=== PATIENT | male | born 1995 | race Caucasian/White ===

== ENCOUNTER 2024-04-26 02:20 | Emergency (ER) | payer OTHER, SELFPAY ==
[2024-04-26 02:23] VITALS: BP 124/80
[2024-04-26 02:27] VITALS: BMI 27.1
[2024-04-26 02:38] VITALS: BP 113/98
--- NOTE | 2024-04-26 02:44 | ED.GENMED ---
History of Present Illness
<Louise Posadas MD - Last Filed: 04/26/24 02:50>
General
Chief Complaint: Chest Pain
Source: patient and family
Time Seen by Provider: 04/26/24 02:35
History of Present Illness
History of Present Illness:
This patient is a 28-year-old male who is a self-described 'hypochondriac', who presents emergency department with 'sharp' discomfort in the left anterior chest that started around 3:30 PM after eating a late lunch. Since then, the pain is now
improved and described as a 'achiness', and will come and go without specific exacerbating relieving factors. At this moment he is pain-free. He denies associated mid upper back pain, neck pain, jaw pain, headache, dizziness, diaphoresis, nausea,
vomiting, dyspnea, abdominal pain, leg swelling, recent immobilization, recent trauma, or other symptoms. Patient states he has been seen in the emergency department at least 3 times for this in the past and been reassured with his workup. He
describes a family history of coronary disease however does not believe it was before the age of 50. Pain is not pleuritic in nature, pain does not radiate
Past History
<Louise Posadas MD - Last Filed: 04/26/24 02:50>
Past History
ED Past Medical History: Hypercholesterolemia
ED Past Surgical History: None
Social History
Tobacco: Former smoker
Alcohol: None
Drug: None
Personal:
Living: with family
Family History
Family History: CAD
Phy Exam
<Louise Posadas MD - Last Filed: 04/26/24 02:50>
Physical Exam
Physical Exam:
GENERAL: Alert , in no apparent distress
EYE: pupils equal and reactive
NECK: Supple, no significant adenopathy.
ENT: o/p clr, mmm.
CARDIAC: Regular rate and rhythm, no murmurs noted.
LUNGS: Clear breath sounds bilaterally, no acute respiratory distress, no wheezes/rales/rhonchi
ABDOMEN: Soft, without focal tenderness, no r/g, no cvat
NEUROLOGICAL: Alert and oriented, no focal neuro deficits
SKIN: Warm and dry, skin intact.
MUSCULOSKELETAL: No edema, well perfused.
PSYCH: Normal and appropriate interaction.
Scores
<Maricruz Clark DO - Last Filed: 04/28/24 01:59>
Heart Score for Chest Pain Patients
STEMI patient?: No
History: Slightly or Non-Suspicious
ECG: Normal
Age: </= 45 years
Risk Factors: No Risk Factors
Troponin: </= Normal Limit
Heart Score for Chest Pain Patients: 0
Heart Score Risk: 2.5% MACE over next 6 weeks
Course
<Louise Posadas MD - Last Filed: 04/26/24 02:50>
Orders/Labs/Results
Orders:
Orders
04/26/24 02:25
ECG [Electrocardiogram (*1)] Urgent
Reason for Study: Chest Pain
04/26/24 02:26
EKG- Treatment ONCE
04/26/24 02:47
Cardiac Monitoring- Treatment ONCE
04/26/24 03:03
Complete Blood Count/No Diff Urgent
Comprehensive Metabolic Panel Urgent
Troponin I Urgent
Abnormal Lab Results
04/26/24
03:03
RBC 4.50 L 10^6/uL
(4.70-6.10)
Hgb 12.5 L g/dL
(13.0-18.0)
Hct 36.4 L %
(39.0-52.0)
MPV 10.5 H fL
(7.4-10.4)
04/26/24 03:03
04/26/24 03:03
Vital Signs
Initial and Last Documented VS:
Initial Vital Signs
Temp Pulse Resp BP Pulse Ox
98.6 F 90 24 124/80 96
04/26/24 02:23 04/26/24 02:23 04/26/24 02:23 04/26/24 02:23 04/26/24 02:23
Last Documented Vital Signs
Temp Pulse Resp BP Pulse Ox
98.6 F 86 21 104/71 98
04/26/24 02:23 04/26/24 04:30 04/26/24 04:30 04/26/24 04:00 04/26/24 02:45
Yudelkalt;Maricruz Clark, DO - Last Filed: 04/28/24 01:59>
Orders/Labs/Results
Orders:
Orders
04/26/24 02:25
ECG [Electrocardiogram (*1)] Urgent
Reason for Study: Chest Pain
04/26/24 02:26
EKG- Treatment ONCE
04/26/24 02:47
Cardiac Monitoring- Treatment ONCE
04/26/24 03:03
Complete Blood Count/No Diff Urgent
Comprehensive Metabolic Panel Urgent
Troponin I Urgent
Abnormal Lab Results
04/26/24
03:03
RBC 4.50 L 10^6/uL
(4.70-6.10)
Hgb 12.5 L g/dL
(13.0-18.0)
Hct 36.4 L %
(39.0-52.0)
MPV 10.5 H fL
(7.4-10.4)
04/26/24 03:03
04/26/24 03:03
Vital Signs
Initial and Last Documented VS:
Initial Vital Signs
Temp Pulse Resp BP Pulse Ox
98.6 F 90 24 124/80 96
04/26/24 02:23 04/26/24 02:23 04/26/24 02:23 04/26/24 02:23 04/26/24 02:23
Last Documented Vital Signs
Temp Pulse Resp BP Pulse Ox
98.6 F 86 21 104/71 98
04/26/24 02:23 04/26/24 04:30 04/26/24 04:30 04/26/24 04:00 04/26/24 02:45
<Maricruz Clark DO - Last Filed: 04/28/24 01:59>
*Pulse Oximetry
Patient hypoxic: no
*EKG
Interpreted by ED Provider?: Yes
Interpretation: normal
Comparison EKG: no comparison EKG present
Rate: normal
Rhythm: sinus
[place]: normal axis
Interval: normal interval
QRS Pattern: normal QRS
Ischemia: no ischemia
*Medical Biller Coder Interpretation
Rate: normal
Interpretation: normal
Rhythm: sinus
*Critical Care Note
Total Time (30-74mins, 75-104mins- exclusive of procedures): Not Applicable
<Louise Posadas MD - Last Filed: 04/26/24 02:50>
Update Note
Update Note:
Patient presents to the Emergency Department with
Number and Complexity of Problems Addressed at the Encounter
� Chronic conditions affecting care:
� Acute Exacerbation and/or Progression of Chronic Illness:
� Differential Diagnosis includes:
Amount and/or Complexity of Data to be Reviewed and Analyzed
� I performed an independent evaluation of and my interpretation is:
EKG: Read by me, normal sinus rhythm, normal rate, normal axis
CT:
Xrays:
Laboratory Studies:
Other:
� Review of other/old records reveals: No prior records noted here
� Clinical information was obtained by an independent historian:
� Prescriptions/Medications Considered but not given:
� Further testing considered but not performed:
Risk of Complications and/or Morbidity or Mortality of Patient Management
� Social determinants of health affecting care:
� Discussion with other providers (PCP, Hospitalists, Consultants, etc):
� Escalation of care including admission/observation vs risk of discharge considered:Workup pending...low clinical suspicion for acs given age, atypical sxs, reassuring ecg, etc. Doublt dissection (not sudden, not radiating, not
marfanoid, etc etc), doubt pe (no rf, not pleuritic,etc), doubt pericarditis (Ecg and hx does not suggest), etc. S/o to Dr Clark...check labs, reassess, likely d/c.
<Maricruz Clark, DO - Last Filed: 04/28/24 01:59>
Update Note
Update Note:
Patient presents to the Emergency Department with
Number and Complexity of Problems Addressed at the Encounter
� Chronic conditions affecting care:
� Acute Exacerbation and/or Progression of Chronic Illness:
� Differential Diagnosis includes:
Amount and/or Complexity of Data to be Reviewed and Analyzed
� I performed an independent evaluation of and my interpretation is:
EKG: Read by me, normal sinus rhythm, normal rate, normal axis
CT:
Xrays:
Laboratory Studies:
Other:
� Review of other/old records reveals: No prior records noted here
� Clinical information was obtained by an independent historian:
� Prescriptions/Medications Considered but not given:
� Further testing considered but not performed:
Risk of Complications and/or Morbidity or Mortality of Patient Management
� Social determinants of health affecting care:
� Discussion with other providers (PCP, Hospitalists, Consultants, etc):
� Escalation of care including admission/observation vs risk of discharge considered:Workup pending...low clinical suspicion for acs given age, atypical sxs, reassuring ecg, etc. Doublt dissection (not sudden, not radiating, not
marfanoid, etc etc), doubt pe (no rf, not pleuritic,etc), doubt pericarditis (Ecg and hx does not suggest), etc. S/o to Dr Clark...check labs, reassess, likely d/c.
04/26/2024 0407 AM
Patient reexamined, resting comfortably, pain-free.
Labs are all unremarkable save for mild anemia with hemoglobin of 12.5. Chemistries are normal including normal troponin. With ongoing chest discomfort since 4 PM yesterday, unremarkable EKG and normal troponin, ACS is unlikely.
I suspect an element of GERD.
He does admit to occasional similar episodes of left-sided chest discomfort if he eats spicy foods.
No risk factors for thromboembolism nor history of such.
Recommend bland diet, avoiding spicy or fried foods, avoid caffeinated beverages, alcoholic beverages. Continue omeprazole as needed for discomfort and prompt follow-up with PCP.
ED Attending Note
<Louise Posadas MD - Last Filed: 04/26/24 02:50>
-
Portions of this chart may have been created with voice recognition software.� Occasional wrong word or��sound alike� substitutions may have occurred due to the inherent limitations of voice recognition software.
Discharge Plan
Departure
Patient Disposition: Home (Routine Discharge)
Date of Disposition: 04/26/24
Time of Disposition: 04:08
Patient with high blood pressure during this ER visit?: Yes
Condition: Good
Discharge Problem:
Chest pain
Instructions: Chest Pain PCP Follow Up, BLOOD PRESSURE
Prescriptions:
No Action
No Current Medications
0
Activity Restrictions/Additional Instructions:
PLEASE SEE YOUR FAMILY DOCTOR IN CLOSE FOLLOW UP. IF YOU DEVELOP INCREASING/NEW/PERSISTENT PAIN, ANY TROUBLE BREATHING, DIZZINESS, ABDOMINAL PAIN, NAUSEA/VOMITING, OR OTHER WORRISOME SIGNS, GO TO THE ER IMMEDIATELY!
Interventions
Interventions:
*Risk Screen - Suicide Last Done: 04/26/24 02:23
*General Assessment Last Done: 04/26/24 02:27
*Neglect/Abuse Screening Last Done: 04/26/24 02:23
ED- Fall Risk Assessment Last Done: 04/26/24 02:27
*ED COVID-19 Vaccine History Last Done: 04/26/24 02:27
*Nursing Disposition Last Done: 04/26/24 04:45
ED- Cardiac Assessment Last Done: 04/26/24 02:27
Discharge Date and Time
Discharge Date/Time: 04/26/24 04:45
Print Language: CITIZEN OF [place]
[2024-04-26 03:00] VITALS: BP 104/76
[2024-04-26 03:12] LABS: Hematocrit 36.4 % (39.0-52.0); Hemoglobin 12.5 g/dL (13.0-18.0); Mean Corp Hgb Conc. 34.3 g/dL (33.0-37.0); Mean Corpuscular Hgb 27.8 pg (27.0-31.0); Mean Corpuscular Volume 80.9 fL (80.0-94.0); Mean Platelet Volume 10.5 fL (7.4-10.4); Platelet Count 212 10^3/uL (130-400); Red Cell Dist. Width 13.2 % (11.5-14.5); White Blood Cell Count 8.6 10^3/uL (4.8-10.8)
[2024-04-26 03:34] LABS: ALT (SGPT) 47 U/L (0-50); AST (SGOT) 35 U/L (17-59); Albumin 4.9 g/dl (3.5-5.0); Alkaline Phosphatase 61 U/L (38-126); Blood Urea Nitrogen 11 mg/dl (9-20); Calcium 9.5 mg/dl (8.4-10.2); Carbon Dioxide 25 mmol/L (22-30); Chloride 103 mmol/L (98-107); Estimated Creatinine Clearance 111 ml/min; Glucose 88 mg/dl (70-99); Potassium 3.9 mmol/L (3.5-5.1); Sodium 141 mmol/L (135-145); Total Protein 7.7 g/dl (6.3-8.2); eGFR > 60.00
[2024-04-26 03:47] LABS: Troponin I < 0.012 ng/ml
[2024-04-26 04:00] VITALS: BP 104/71
== END 2024-04-26 04:45 | disposition home or self-care (01) ==
LOC: EMR 02:20
PROVIDERS: Emergency Medicine; EMERGENCY PHYSICIAN Emergency Medicine
DX: R07.89 Other chest pain (principal)
CPT/HCPCS: 99283; 80053; 84484; 85027; 93005

== ENCOUNTER 2024-07-18 19:11 | Emergency (ER) | payer OTHER, SELFPAY ==
[2024-07-18] VITALS (16 sets, daily range): BP systolic 113–125; BP diastolic 79–89; BMI 23.1
--- NOTE | 2024-07-18 19:29 | ED.GENMED ---
ED Provider Triage
<Honey Jean PA-C - Last Filed: 07/18/24 19:34>
-
Patient seen by provider in Triage?: Seen in Triage
Attestation: A medical screening examination has been initiated by a qualified medical provider. Based on the assessment performed at this time, it has been determined that an emergent medical condition may exist and the patient has been informed
that further medical evaluation and possible additional diagnostic testing may be needed.
HPI: 28yoM here with palpitations x several days. HR went up to the 200s last night. Also having intermittent sharp chest pains. Seen by bag liner yesterday and has a stress test scheduled on Tuesday.
GENERAL: Alert , in no apparent distress
EYE: No visual abnormalities.
NECK: Trachea midline
ENT: No visible abnormalities.
LUNGS: No acute respiratory distress
NEUROLOGICAL: Alert and oriented
SKIN: Skin intact. No visible changes.
MUSCULOSKELETAL: Moving extremities normally
PSYCH: Normal and appropriate interaction.
This is a medical evaluation conducted in person to initiate diagnostic evaluation and provide initial therapeutics. Please see further documentation by the treating clinician.
Cardiac labs, TSH, magnesium, EKG, and CXR ordered.
History of Present Illness
<Honey Jean PA-C - Last Filed: 07/18/24 19:34>
General
Chief Complaint: Chest Problem
Time Seen by Provider: 07/18/24 20:42
<Janeth Pardo DO - Last Filed: 07/18/24 22:41>
History of Present Illness
History of Present Illness:
28-year-old male without significant past medical history presenting to the emergency department for palpitations. Patient reports that he has had palpitations in the past, however in the last 4 days, has had increasing palpitations, and checked
his heart rate, which was greater than 170. Patient notes that at onset he went to outside hospital, was evaluated and heart rate had improved, was told to follow-up with cardiology. He saw cardiology, is scheduled for stress testing and Holter
monitor. Denies any supplement use. Denies any history of blood clots. Denies recent travel or surgery. Denies any supplement usage. Denies dyspnea. Denies any increased anxiety. Denies additional acute medical complaint
Past History
<Honey Jean PA-C - Last Filed: 07/18/24 19:34>
Past History
ED Past Medical History: Hypercholesterolemia
ED Past Surgical History: None
Social History
Tobacco: Former smoker
Alcohol: None
Drug: None
Personal:
Living: with family
Family History
Family History: CAD
Phy Exam
<Janeth Pardo DO - Last Filed: 07/18/24 22:41>
Physical Exam
Physical Exam:
General: Well-appearing, no clinical signs of dehydration, nontoxic and in no acute distress
HEENT: protecting airway
Neck: appears supple
CV: Normal heart rate, regular rhythm, no evidence of cyanosis
Resp: No accessory muscle use, no increased work of breathing, lungs clear to auscultation bilaterally
Abd: Soft and non-distended, no tenderness to palpation
Extremities: No deformities, no swelling, no erythema
Neuro: alert, no focal neurologic deficit
: deferred
Rectal: deferred
Psych: Normal affect
Skin: Intact
Course
<Honey Jean PA-C - Last Filed: 07/18/24 19:34>
Orders/Labs/Results
Orders:
Orders
07/18/24 19:12
Electrocardiogram (*1) Urgent
Reason for Study: Chest Pain
EKG- Treatment ONCE
07/18/24 19:32
CR Chest - 2 Views Urgent
Comment:
Reason For Exam: CP
07/18/24 19:40
Complete Blood Count/With Diff Urgent
Comprehensive Metabolic Panel Urgent
Free T4 Urgent
Magnesium Urgent
TSH Reflex To Free T4 Urgent
Troponin I Urgent
07/18/24 21:21
D-Dimer Urgent
Abnormal Lab Results
07/18/24
19:40
MPV 11.1 H fL
(7.4-10.4)
Glucose 146 H mg/dl
(70-99)
Total Protein 8.5 H g/dl
(6.3-8.2)
Albumin 5.4 H g/dl
(3.5-5.0)
TSH (Reflex) 0.42 L uIU/ml
(0.47-4.68)
07/18/24 19:40
07/18/24 19:40
Vital Signs
Initial and Last Documented VS:
Initial Vital Signs
Temp Pulse Resp BP Pulse Ox
98.2 F 94 16 125/86 99
07/18/24 19:25 07/18/24 19:25 07/18/24 19:25 07/18/24 19:25 07/18/24 19:25
Last Documented Vital Signs
Temp Pulse Resp BP Pulse Ox
98.2 F 86 13 118/86 98
07/18/24 19:25 07/18/24 22:00 07/18/24 22:00 07/18/24 22:00 07/18/24 20:40
<Janeth Pardo, DO - Last Filed: 07/18/24 22:41>
Orders/Labs/Results
Orders:
Orders
07/18/24 19:12
Electrocardiogram (*1) Urgent
Reason for Study: Chest Pain
EKG- Treatment ONCE
07/18/24 19:32
CR Chest - 2 Views Urgent
Comment:
Reason For Exam: CP
07/18/24 19:40
Complete Blood Count/With Diff Urgent
Comprehensive Metabolic Panel Urgent
Free T4 Urgent
Magnesium Urgent
TSH Reflex To Free T4 Urgent
Troponin I Urgent
07/18/24 21:21
D-Dimer Urgent
Abnormal Lab Results
07/18/24
19:40
MPV 11.1 H fL
(7.4-10.4)
Glucose 146 H mg/dl
(70-99)
Total Protein 8.5 H g/dl
(6.3-8.2)
Albumin 5.4 H g/dl
(3.5-5.0)
TSH (Reflex) 0.42 L uIU/ml
(0.47-4.68)
07/18/24 19:40
07/18/24 19:40
Vital Signs
Initial and Last Documented VS:
Initial Vital Signs
Temp Pulse Resp BP Pulse Ox
98.2 F 94 16 125/86 99
07/18/24 19:25 07/18/24 19:25 07/18/24 19:25 07/18/24 19:25 07/18/24 19:25
Last Documented Vital Signs
Temp Pulse Resp BP Pulse Ox
98.2 F 86 13 118/86 98
07/18/24 19:25 07/18/24 22:00 07/18/24 22:00 07/18/24 22:00 07/18/24 20:40
<Janeth Pardo, DO - Last Filed: 07/18/24 22:41>
MDM/Problems Addressed
MDM/Problems Addressed:
28-year-old male without any significant past medical history presenting for intermittent palpitations. Vital signs on arrival are normal.
On exam patient is resting comfortably, no acute distress or discomfort, normal heart rate. EKG reviewed, no arrhythmia, normal rhythm, normal rate. Exam is unremarkable, normal cardiac, pulmonary exam. Patient without any present chest pain,
nonischemic EKG without concern for ACS. Thyroid issue is a consideration, plan for thyroid testing. Emotional versus anxiety component is also consideration. PE is a consideration will plan for dimer.
22:30 -patient's labs are unremarkable, low TSH, however normal T4. Do not suspect thyroid issue. D-dimer within normal limits, without concern for PE. Troponin within normal limits, again without concern for ACS. Normal electrolyte panel and no
clinical signs of dehydration. Feel stable for discharge. 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 This reason feel stable for discharge. Return precautions discussed
and patient verbalized understanding
<Janeth Pardo DO - Last Filed: 07/18/24 22:41>
*EKG
Interpreted by ED Provider?: Yes
EKG Intrepretation Date: 07/18/24
EKG Intrepretation Time: 22:37
Interpretation: normal
Heart Rate: 80
Rate: normal
Rhythm: sinus
[place]: normal axis
Interval: normal interval
QRS Pattern: normal QRS
Ischemia: no ischemia
*Critical Care Note
Total Time (30-74mins, 75-104mins- exclusive of procedures): Not Applicable
ED Attending Note
<Honey Jean PA-C - Last Filed: 07/18/24 19:34>
-
Portions of this chart may have been created with voice recognition software.� Occasional wrong word or��sound alike� substitutions may have occurred due to the inherent limitations of voice recognition software.
Discharge Plan
Departure
Patient Disposition: Home (Routine Discharge)
Date of Disposition: 07/18/24
Time of Disposition: 22:33
Patient with high blood pressure during this ER visit?: No
Condition: Good
Discharge Problem:
Heart palpitations
Instructions: Palpitations ED
Prescriptions:
No Action
No Current Medications
0
Referrals:
Sahara Johnson DO [Primary Care Provider] -
EDGAR ODOM MD [Family Provider] -
Activity Restrictions/Additional Instructions:
You were seen in the emergency department for palpitations
You were found to have a normal EKG and laboratory analysis. Please follow-up with your bag liner as scheduled for Holter monitor and stress testing
Please follow-up closely with your primary care physician.
Return to the emergency department for any worsening of your symptoms, or any development of chest pain, difficulty breathing, abdominal pain with persistent vomiting and inability to tolerate food or liquid by mouth (concern for dehydration),
weakness, headache or confusion, fever greater than 100.4, or any additional symptoms that are concerning to you.
Thank you for choosing [facility].
Interventions
Interventions:
*Risk Screen - Suicide Last Done: 07/18/24 19:25
*General Assessment Last Done: 07/18/24 20:40
*Neglect/Abuse Screening Last Done: 07/18/24 19:25
ED- Fall Risk Assessment Last Done: 07/18/24 20:40
*ED COVID-19 Vaccine History Last Done: 07/18/24 20:39
ED- Cardiac Assessment Last Done: 07/18/24 20:40
ED- Pulmonary Assessment Last Done: 07/18/24 20:40
Discharge Date and Time
Print Language: MAORI
[2024-07-18 19:59] LABS: % Basophils 0.2 % (0-2); % Eosinophils 1.1 % (0-6); % Immature Granulocytes 0.2 % (0-0.5); % Lymphocytes 20.8 % (20.5-51.1); % Monocytes 4.4 % (1.7-9.3); % Neutrophils 73.3 % (42.2-75.2); Absolute Eosinophils 0.1 10^3/uL (0-0.7); Absolute Lymphocytes 1.7 10^3/uL (1.2-3.4); Absolute Monocytes 0.4 10^3/uL (0.1-0.6); Hematocrit 41.7 % (39.0-52.0); Hemoglobin 14.4 g/dL (13.0-18.0); Mean Corp Hgb Conc. 34.5 g/dL (33.0-37.0); Mean Corpuscular Hgb 28.4 pg (27.0-31.0); Mean Corpuscular Volume 82.2 fL (80.0-94.0); Mean Platelet Volume 11.1 fL (7.4-10.4); Nucleated Red Blood Cells % 0 % (-); Platelet Count 224 10^3/uL (130-400); Red Blood Cell Count 5.07 10^6/uL (4.70-6.10); Red Cell Dist. Width 13.1 % (11.5-14.5); White Blood Cell Count 8.2 10^3/uL (4.8-10.8)
[2024-07-18 20:20] LABS: ALT (SGPT) 49 U/L (0-50); AST (SGOT) 35 U/L (17-59); Albumin 5.4 g/dl (3.5-5.0); Alkaline Phosphatase 57 U/L (38-126); Blood Urea Nitrogen 13 mg/dl (9-20); Calcium 9.9 mg/dl (8.4-10.2); Carbon Dioxide 25 mmol/L (22-30); Chloride 99 mmol/L (98-107); Glucose 146 mg/dl (70-99); Magnesium 2.3 mg/dl (1.6-2.3); Potassium 4.1 mmol/L (3.5-5.1); Sodium 136 mmol/L (135-145); Total Bilirubin 1.1 mg/dl (0.2-1.3); Total Protein 8.5 g/dl (6.3-8.2); eGFR > 60.00
[2024-07-18 20:21] LABS: Troponin I < 0.012 ng/ml
[2024-07-18 20:49] LABS: TSH Reflex To Free T4 0.42 uIU/ml (0.47-4.68)
[2024-07-18 21:20] LABS: Free T4 1.19 ng/dl (0.78-2.19)
[2024-07-18 21:45] LABS: D-Dimer < 0.27 ug/mlFEU (0.00-0.50)
== END 2024-07-18 23:11 | disposition home or self-care (01) ==
LOC: EMR 19:11
PROVIDERS: Physician Assistant; EMERGENCY PHYSICIAN Student in an Organized Health Care Education/Training Program; FAMILY PHYSICIAN General Practice; PRIMARYCARE PHYSICIAN Internal Medicine
DX: R00.2 Palpitations (principal); Z87.891 Personal history of nicotine dependence
CPT/HCPCS: 99285; 71046; 80053; 83735; 84439; 84443; 84484; 85025; 85379; 93005

== ENCOUNTER 2024-08-15 20:04 | Emergency (ER) | payer OTHER, SELFPAY ==
[2024-08-15 20:05] VITALS: BMI 25.4
[2024-08-15 20:06] VITALS: BP 114/80
[2024-08-15 20:25] LABS: % Basophils 0.3 % (0-2); % Eosinophils 1.8 % (0-6); % Immature Granulocytes 0.1 % (0-0.5); % Lymphocytes 33.5 % (20.5-51.1); % Monocytes 4.6 % (1.7-9.3); % Neutrophils 59.7 % (42.2-75.2); Absolute Eosinophils 0.1 10^3/uL (0-0.7); Absolute Lymphocytes 2.5 10^3/uL (1.2-3.4); Absolute Monocytes 0.3 10^3/uL (0.1-0.6); Absolute Neutrophils 4.4 10^3/uL (1.4-6.5); Hematocrit 41.7 % (39.0-52.0); Mean Corp Hgb Conc. 33.6 g/dL (33.0-37.0); Mean Corpuscular Hgb 28.2 pg (27.0-31.0); Mean Corpuscular Volume 83.9 fL (80.0-94.0); Mean Platelet Volume 11.9 fL (7.4-10.4); Nucleated Red Blood Cells % 0 % (-); Platelet Count 197 10^3/uL (130-400); Red Blood Cell Count 4.97 10^6/uL (4.70-6.10); Red Cell Dist. Width 13.2 % (11.5-14.5); White Blood Cell Count 7.3 10^3/uL (4.8-10.8)
[2024-08-15 20:38] LABS: ALT (SGPT) 45 U/L (0-50); AST (SGOT) 34 U/L (17-59); Albumin 5.1 g/dl (3.5-5.0); Alkaline Phosphatase 58 U/L (38-126); Blood Urea Nitrogen 11 mg/dl (9-20); Calcium 9.5 mg/dl (8.4-10.2); Carbon Dioxide 29 mmol/L (22-30); Chloride 99 mmol/L (98-107); Glucose 97 mg/dl (70-99); Sodium 140 mmol/L (135-145); Total Protein 8.1 g/dl (6.3-8.2); eGFR > 60.00
[2024-08-15 20:49] LABS: Troponin I < 0.012 ng/ml
[2024-08-15 22:14] VITALS: BP 95/82
[2024-08-15 22:17] VITALS: BP 110/82
[2024-08-15] MEDS: MAALOX 50 PO (22:52)
[2024-08-15 23:00] VITALS: BP 114/88
[2024-08-15] MEDS: CARAFATE SUSPENSION 1 GM PO (23:19)
--- NOTE | 2024-08-15 23:31 | ED.GENMED ---
History of Present Illness
General
Chief Complaint: Chest Pain
Source: patient and previous hospital records (ED visits April as well as July 2024 for somewhat similar complaint. Unremarkable workup on each visit.)
Exam Limitations: none
Time Seen by Provider: 08/15/24 22:07
Nursing documentation reviewed up to this point in time: agreed with
History of Present Illness
History of Present Illness:
This is a 29-year-old gentleman who has history of GERD, history of hyperlipidemia�diet controlled. He presents with complaints of ongoing chest pain, sharp, stabbing primarily left-sided chest pain but occasionally right-sided chest pain,
occasionally substernal, occasionally accompanied with palpitations, feeling that his heart is racing. Chest pain occasionally worsened at nighttime, worsened after spicy or heavy meals.
Symptoms have been ongoing for quite some time and he was evaluated in this ED April 2024 and then again July 18, 2024 for similar complaints of chest pain. Unremarkable ED visits at that time with unremarkable laboratory studies, negative
troponin, unremarkable EKGs.
In July, TSH minimally low at 0.42 with normal free T4.
He has been following with a slps, Dr. Corea and underwent unremarkable stress test July 23.
He recently completed 2-week event monitor and handed this in yesterday. Results are pending.
He is chronically maintained on omeprazole 20 mg daily and occasionally takes Gas-X. He is unsure if omeprazole has been helpful for his chest discomfort. Initially chest pain episodes had improved with discontinuing spicy foods and has eliminated
all caffeine from his diet. He states he has lost near 20 pounds with dietary measures.
He has had persistent chest discomfort over the past week which prompted call to his slps and was recommended to come to the ED for evaluation.
He denies coughing or shortness of breath, no dizziness nor lightheadedness, no back pain or neck pain, no weakness. He has had intermittent tingling of his fingers and toes and occasionally feels that he has difficulty taking a deep breath but
denies coughing or shortness of breath. No leg pain or swelling. No recent travel. No fever nor chills.
He states with dietary measures his cholesterol improved. LDL of 126. He states lipoprotein a was reassuringly quite low at 17.
There is family history of CAD but no family history of early coronary artery disease. No history of thromboembolism.
Past History
Past History
ED Past Medical History: GERD and Hypercholesterolemia
ED Past Surgical History: None
Social History
Tobacco: Former smoker
Alcohol: None
Drug: None
Personal:
Living: with family
Employment: Employed
Family History
Family History: CAD; Negative Early CAD
Phy Exam
Physical Exam
Physical Exam:
GENERAL: 29-year-old gentleman appears his stated age, bright alert, pleasant, appears in no acute distress. and young daughter are accompanying.
EYE: anicteric
NECK: Supple, nontender, no meningismus, no significant adenopathy.
ENT: posterior pharynx is clear, oral mucosa is moist. TM clear b/l, nares patent.
CARDIAC: Regular rate and rhythm. no murmur. No palpable chest wall tenderness.
LUNGS: Clear breath sounds bilaterally, no acute respiratory distress, no wheezes/rales/rhonchi
ABDOMEN: Soft, nondistended, without focal tenderness, no r/g, no cvat. normoactive BS.
NEUROLOGICAL: Alert and oriented x3, no focal neuro deficits. Gait is benz and steady.
SKIN: Warm and dry, normal color, skin intact. No rash.
MUSCULOSKELETAL: No C/C/E. peripheral pulses are full and equal b/l. No palpable tenderness.
PSYCH: Normal and appropriate interaction.
Scores
Heart Score for Chest Pain Patients
STEMI patient?: No
History: Slightly or Non-Suspicious
ECG: Normal
Age: </= 45 years
Risk Factors: 1 or 2 Risk Factors
Troponin: </= Normal Limit
Heart Score for Chest Pain Patients: 1
Heart Score Risk: 2.5% MACE over next 6 weeks
Course
Orders/Labs/Results
Orders:
Orders
08/15/24 20:07
Electrocardiogram (*1) Urgent
Reason for Study: Chest Pain
EKG- Treatment ONCE
08/15/24 20:14
Complete Blood Count/With Diff Urgent
Comprehensive Metabolic Panel Urgent
TSH Reflex To Free T4 Urgent
Comment: ADD ON
Troponin I Urgent
08/15/24 22:43
Add On- LAB Urgent
Tests Added?: TSH w reflex to free T-4
Mag Hydrox/Al Hydrox/Simeth [Maalox] 30 ml Phenobarb/Hyoscy/Atropine/Scop [] 10 ml Viscous Lidocaine 2% [Xylocaine Viscous Cup] 10 ml PO NOW
Sucralfate Suspension [Carafate Suspension] 1 gm PO NOW STA
08/15/24 22:45
Mag Hydrox/Al Hydrox/Simeth [Maalox] 30 ml .ROUTE .STK-MED ONE
Phenobarb/Hyoscy/Atropine/Scop [] 10 ml .ROUTE .STK-MED ONE
08/15/24 22:46
Viscous Lidocaine 2% [Xylocaine Viscous Cup] 15 ml .ROUTE .STK-MED ONE
Abnormal Lab Results
08/15/24
20:14
MPV 11.9 H fL
(7.4-10.4)
Albumin 5.1 H g/dl
(3.5-5.0)
08/15/24 20:14
08/15/24 20:14
Vital Signs
Initial and Last Documented VS:
Initial Vital Signs
Temp Pulse Resp BP Pulse Ox
97.8 F 80 16 114/80 100
08/15/24 20:06 08/15/24 20:06 08/15/24 20:06 08/15/24 20:06 08/15/24 20:06
Last Documented Vital Signs
Temp Pulse Resp BP Pulse Ox
97.8 F 95 18 110/82 99
08/15/24 20:06 08/15/24 22:17 08/15/24 22:17 08/15/24 22:17 08/15/24 22:17
MDM/Problems Addressed
Differential Diagnosis Includes:
Concern for GERD, musculoskeletal chest pain. ACS is doubtful as is thromboembolism.
EKG is unremarkable and unchanged from previous.
Labs again are unremarkable with normal troponin.
He has had intermittent palpitations and 1 month ago TSH was minimally low with normal free T4. There is some concern for potential hyperthyroidism thus will recheck TSH with reflex to free T4.
Thus far monitor shows normal sinus rhythm without ectopy nor arrhythmia.
Patient currently following with cardiology with thus far unremarkable cardiac workup including stress test. 2-week event monitor recently completed. Results are pending.
Will trial a GI cocktail and Carafate for potential GERD/esophagitis.
Unremarkable chest x-ray 1 month ago. Patient has not had a cough nor shortness of breath. Lungs are clear to auscultation. No indication to repeat.
*Pulse Oximetry
Patient hypoxic: no
*EKG
Interpreted by ED Provider?: Yes
Interpretation: normal
Comparison EKG: no changes
Rate: normal
Rhythm: sinus
[place]: normal axis
Interval: normal interval
QRS Pattern: normal QRS
Ischemia: no ischemia
*Component Technician Interpretation
Rate: normal
Interpretation: normal
Rhythm: sinus
*Critical Care Note
Total Time (30-74mins, 75-104mins- exclusive of procedures): Not Applicable
Update Note
Update Note:
23:55
Patient reports no significant change in intermittent left upper chest discomfort which she continues to is described as brief, sharp, stabbing and intermittent in nature.
Monitor continues to show normal sinus rhythm without ectopy nor arrhythmia.
Vital signs within normal limits.
At this point I am not convinced that chest discomfort is GERD in nature but I do recommend that he continue his omeprazole on a daily basis.
He may have an element of musculoskeletal chest pain and could trial Tylenol versus ibuprofen.
Thyroid functions are pending.
He has been reassured that there appears no evidence of ACS nor other life-threatening entity.
There seems to be a fair amount of underlying anxiety/worry.
Encouraged continued follow-up with cardiology and recommend follow-up with PCP as well.
ED Attending Note
-
Portions of this chart may have been created with voice recognition software.� Occasional wrong word or��sound alike� substitutions may have occurred due to the inherent limitations of voice recognition software.
Discharge Plan
Departure
Patient Disposition: Home (Routine Discharge)
Date of Disposition: 08/16/24
Time of Disposition: 00:02
Patient with high blood pressure during this ER visit?: No
Condition: Good
Discharge Problem:
Nonspecific chest pain
Instructions: Chest Pain That Is Not Caused by the Heart (DC), Chest Pain NON-DHP General Medical Practitioner Follow Up
Prescriptions:
No Action
No Current Medications
0
Referrals:
PRIVATE,PHYSICIAN [Family Provider] -
Interventions
Interventions:
*Risk Screen - Suicide Last Done: 08/15/24 20:06
*General Assessment Last Done: 08/15/24 22:22
*Neglect/Abuse Screening Last Done: 08/15/24 20:06
*ED COVID-19 Vaccine History Last Done: 08/15/24 22:22
ED- Cardiac Assessment Last Done: 08/15/24 22:19
Discharge Date and Time
Print Language: [place]
[2024-08-16] VITALS: BP 118/81
== END 2024-08-16 00:25 | disposition home or self-care (01) ==
LOC: EMR 20:04
PROVIDERS: Emergency Medicine; EMERGENCY PHYSICIAN Emergency Medicine
DX: R07.89 Other chest pain (principal); K21.9 Gastro-esophageal reflux disease without esophagitis; E78.00 Pure hypercholesterolemia, unspecified; Z87.891 Personal history of nicotine dependence
CPT/HCPCS: 99284; 80053; 84443; 84484; 85025; 93005